=== PATIENT | female | born 1945 | race Caucasian/White ===

== ENCOUNTER 2024-01-28 22:00 | Emergency (ER) | payer MEDICARE, OTHER, SELFPAY ==
[2024-01-28 22:14] VITALS: BP 113/58
[2024-01-28 22:33] LABS: % Basophils 0.4 % (0-2); % Immature Granulocytes 0.4 % (0-0.5); % Lymphocytes 1.4 % (20.5-51.1); % Monocytes 1.7 % (1.7-9.3); % Neutrophils 96.1 % (42.2-75.2); Absolute Basophils 0.1 10^3/uL (0-0.2); Absolute Immature Granulocytes 0.1 10^3/uL (0-0.05); Absolute Lymphocytes 0.2 10^3/uL (1.2-3.4); Absolute Monocytes 0.3 10^3/uL (0.1-0.6); Absolute Neutrophils 16.4 10^3/uL (1.4-6.5); Hematocrit 41.5 % (37.0-47.0); Hemoglobin 14.2 g/dL (12.0-16.0); Mean Corp Hgb Conc. 34.2 g/dL (33.0-37.0); Mean Corpuscular Hgb 29.5 pg (27.0-31.0); Mean Corpuscular Volume 86.1 fL (81.0-99.0); Mean Platelet Volume 10.7 fL (7.4-10.4); Nucleated Red Blood Cells % 0 %; Platelet Count 160 10^3/uL (130-400); Red Blood Cell Count 4.82 10^6/uL (4.20-5.40); Red Cell Dist. Width 13.2 % (11.5-14.5)
[2024-01-28 22:46] LABS: ALT (SGPT) 25 U/L (0-35); AST (SGOT) 27 U/L (14-36); Alkaline Phosphatase 139 U/L (38-126); Blood Urea Nitrogen 19 mg/dl (7-17); Calcium 9.9 mg/dl (8.4-10.2); Carbon Dioxide 24 mmol/L (22-30); Chloride 101 mmol/L (98-107); Glucose 228 mg/dl (70-99); Lipase 72 U/L (23-300); Potassium 4.2 mmol/L (3.5-5.1); Sodium 134 mmol/L (135-145); Total Bilirubin 0.8 mg/dl (0.2-1.3); Total Protein 7.1 g/dl (6.3-8.2); eGFR 58.39
[2024-01-28 22:57] LABS: Troponin I < 0.012 ng/ml
== END 2024-01-29 00:45 ==
LOC: EMR 22:00
PROVIDERS: Emergency Medicine; EMERGENCY PHYSICIAN Student in an Organized Health Care Education/Training Program
DX: R07.89 Other chest pain (principal)
CPT/HCPCS: 80053; 83690; 84484; 85025; 93005

== ENCOUNTER → 2024-01-29 15:59 | Outpatient (REF) | payer MEDICARE, OTHER, SELFPAY ==
[2024-01-29 16:56] LABS: Urine Albumin Negative (Neg - Trace); Urine Bilirubin Negative (Negative); Urine Character Clear (Clear); Urine Color Yellow; Urine Glucose 3+ (Negative); Urine Ketone 1+ (Negative); Urine Leukocyte Trace (Negative); Urine Nitrite Negative (Negative); Urine Occult Blood Negative (Negative); Urine Urobilinogen Negative (Neg - 1+); Urine pH 6.5 (5.0-9.0)
[2024-01-29 17:12] LABS: Urine Squamous Cell 0-2 /LPF (Few)
[2024-01-29 17:13] LABS: Urine Red Blood Cell 0-2 /HPF (0-2); Urine White Cell 0-2 /HPF (0-5)
== END ==
LOC: REG 15:59
PROVIDERS: ATTENDING PHYSICIAN Urology; FAMILY PHYSICIAN Internal Medicine
DX: N39.0 Urinary tract infection, site not specified (principal)
CPT/HCPCS: 81003; 81015; 87086

== ENCOUNTER → 2024-05-16 10:19 | Outpatient (REF) | payer MEDICARE, OTHER, SELFPAY | LOC: RAD 10:19 | PROVIDERS: ATTENDING PHYSICIAN Registered Nurse | DX: M54.32 Sciatica, left side (principal) | CPT/HCPCS: 72110 ==

== ENCOUNTER → 2024-06-25 07:13 | Outpatient (REF) | payer MEDICARE, OTHER, SELFPAY | LOC: DHCBC/DCA 07:13 | PROVIDERS: ATTENDING PHYSICIAN Internal Medicine Cardiovascular Disease; FAMILY PHYSICIAN Internal Medicine | DX: R94.31 Abnormal electrocardiogram [ECG] [EKG] (principal); Z01.810 Encounter for preprocedural cardiovascular examination | CPT/HCPCS: 78452; 93017; A9500; J2785 ==

== ENCOUNTER 2025-03-22 09:53 | Emergency (ER) | payer MEDICARE, OTHER, SELFPAY ==
[2025-03-22 09:56] VITALS: BP 125/93
[2025-03-22 11:12] VITALS: BMI 24.0
[2025-03-22 11:17] VITALS: BP 124/60
--- NOTE | 2025-03-22 11:24 | ED.SKININJ ---
HPI-Injury
<Dana Keys MD, Resident - Last Filed: 03/22/25 14:27>
General
Chief Complaint: Skin Problem
Source: patient
Time Seen by Provider: 03/22/25 11:01
History of Present Illness-Injury
Is this injury a work related problem?: No
Initial Injury comments:
79-year-old female comes to the ED from her primary care due to right lower extremity wound. She was in [facility] with her around 12 days ago and tripped on an escalator and ended up injuring her bilateral lower extremities. She had a large
abrasion on her right lower extremity which was stitched. This past Saturday patient went to her primary care who took out the stitches and started her on Keflex 500 mg 3 times daily for cellulitis. She went back to her primary this morning who
told her that the cellulitis looked worse and that she should go to the ED for further evaluation.
Past History
<Dana Keys MD, Resident - Last Filed: 03/22/25 14:27>
Past History
ED Past Medical History: GERD and NIDDM
ED Past Surgical History: Bowel resection (Diverticulitis), Gynecological (Total hysterectomy for uterine cancer) and Orthopedic (Bilateral knee replacement)
Social History
Tobacco: Non-smoker
Alcohol: None
Drug: None
Personal:
Living: with family
Review of Systems
<Dana Keys MD, Resident - Last Filed: 03/22/25 14:27>
Review of Systems
Allergies reviewed?: Yes
Constitutional: Reports fever
EENT: Reports no symptoms
Respiratory: Reports cough
Cardiac: Reports no symptoms
ABD/GI: Reports no symptoms
: Reports no symptoms
Musculoskeletal: Reports no symptoms
Skin: Reports other (skin excoriation)
Neurological: Reports no symptoms
Endocrine: Reports no symptoms
Hematologic/Lymphatic: Reports no symptoms
Psychiatric: Reports no symptoms
Skin Exam
<Dana Keys MD, Resident - Last Filed: 03/22/25 14:27>
Abrasion
Right Lower Leg:
Description of abrasion: superfical/clean
Left Lower Leg:
Description of abrasion: superfical/clean
Phy Exam
<Dana Keys MD, Resident - Last Filed: 03/22/25 14:27>
General Physical Exam
General Presentation: well appearing and no apparent distress
General Skin: warm and dry
General Mental: alert
General Hydration: appears well hydrated
Cardiovascular Exam
Cardiovascular Exam: regular rate/rhythm, no edema and no murmur
Pulmonary Exam
Pulmonary Exam: lungs clear, no crackles and no wheezing
Cough: non productive cough
Course
<Dana Keys MD, Resident - Last Filed: 03/22/25 14:27>
Orders/Labs/Results
Orders:
Orders
03/22/25 11:15
Complete Blood Count/With Diff Urgent
Comprehensive Metabolic Panel Urgent
Magnesium Urgent
03/22/25 11:41
Doxycycline [Vibramycin] 100 mg PO NOW STA
Abnormal Lab Results
03/22/25
11:15
Absolute Neuts (auto) 7.3 H 10^3/uL
(1.4-6.5)
Absolute Lymphs (auto) 1.0 L 10^3/uL
(1.2-3.4)
Absolute Monos (auto) 0.7 H 10^3/uL
(0.1-0.6)
Neutrophils % 80.4 H %
(42.2-75.2)
Lymphocytes % 10.7 L %
(20.5-51.1)
BUN 18 H mg/dl
(7-17)
Glucose 137 H mg/dl
(70-99)
Alkaline Phosphatase 128 H U/L
(38-126)
03/22/25 11:15
03/22/25 11:15
Vital Signs
Initial and Last Documented VS:
Initial Vital Signs
Temp Pulse Resp BP Pulse Ox
98.6 F 99 18 125/93 97
03/22/25 09:56 03/22/25 09:56 03/22/25 09:56 03/22/25 09:56 03/22/25 09:56
Last Documented Vital Signs
Temp Pulse Resp BP Pulse Ox
98.6 F 105 20 124/60 97
03/22/25 11:17 03/22/25 11:17 03/22/25 11:17 03/22/25 11:17 03/22/25 11:28
<Alejandro Miranda MD - Last Filed: 03/22/25 11:57>
Orders/Labs/Results
Orders:
Orders
03/22/25 11:15
Complete Blood Count/With Diff Urgent
Comprehensive Metabolic Panel Urgent
Magnesium Urgent
03/22/25 11:41
Doxycycline [Vibramycin] 100 mg PO NOW STA
Abnormal Lab Results
03/22/25
11:15
Absolute Neuts (auto) 7.3 H 10^3/uL
(1.4-6.5)
Absolute Lymphs (auto) 1.0 L 10^3/uL
(1.2-3.4)
Absolute Monos (auto) 0.7 H 10^3/uL
(0.1-0.6)
Neutrophils % 80.4 H %
(42.2-75.2)
Lymphocytes % 10.7 L %
(20.5-51.1)
BUN 18 H mg/dl
(7-17)
Glucose 137 H mg/dl
(70-99)
Alkaline Phosphatase 128 H U/L
(38-126)
03/22/25 11:15
03/22/25 11:15
Vital Signs
Initial and Last Documented VS:
Initial Vital Signs
Temp Pulse Resp BP Pulse Ox
98.6 F 99 18 125/93 97
03/22/25 09:56 03/22/25 09:56 03/22/25 09:56 03/22/25 09:56 03/22/25 09:56
Last Documented Vital Signs
Temp Pulse Resp BP Pulse Ox
98.6 F 105 20 124/60 97
03/22/25 11:17 03/22/25 11:17 03/22/25 11:17 03/22/25 11:17 03/22/25 11:28
<Dana Keys MD, Resident - Last Filed: 03/22/25 14:27>
MDM/Problems Addressed
Differential Diagnosis Includes:
Cellulitis
MDM/Problems Addressed:
Plan:
- Patient's wound examined, with wound with some granulation tissues seen
- Cellulitis seems to be improved as per primary care markings
- Will give dose of doxycycline
- Will prescribe doxycycline to take with Keflex for 7 days
- Assured her that she can come back tomorrow after 7 PM and be seen by Dr. Miranda to see if her leg is getting any better
- Upper respiratory symptoms noted but no fever at this time or leukocytosis
<Dana Keys MD, Resident - Last Filed: 03/22/25 14:27>
*Pulse Oximetry
SaO2: 96
Oxygen Mode of Delivery: Room air
Patient hypoxic: no
*Critical Care Note
Total Time (30-74mins, 75-104mins- exclusive of procedures): Not Applicable
ED Attending Note
<Dana Keys MD, Resident - Last Filed: 03/22/25 14:27>
-
Portions of this chart may have been created with voice recognition software.� Occasional wrong word or��sound alike� substitutions may have occurred due to the inherent limitations of voice recognition software.
<Alejandro Miranda MD - Last Filed: 03/22/25 11:57>
ED Attending Note
Patient seen and examined by attending physician: Yes
I performed a history and physical exam of patient and discussed management with resident, I reviewed resident's note and agree with documented findings and plan of care.: Yes
ED Attending Note:
Posttraumatic wound of both legs. Was sutured. Suture removal 3 days ago to the right leg. Started Keflex 2 days ago. Did have a fever yesterday but has has upper respiratory symptoms and cough. No fever today. Patient feels the wound is
improving mildly. Physician was concerned and wanted evaluation in the emergency department.
On exam patient is nontoxic in no distress. She has an open wound to the right lower leg. There is some whiteness to the edge of the wound. Mild dehiscence. Minimal surrounding cellulitis. Erythema has decreased from the markings placed by her
primary MD 2 days ago. She has no calf swelling or cord. She is very nontoxic in appearance. Left leg has very superficial abrasions all scabbed and healing well.
Impression is local cellulitis of the right leg. I do not feel this needs IV antibiotics or admission. Her fever yesterday was likely respiratory in nature. She is in no respiratory distress. Will add doxycycline with close outpatient follow-up.
I did offer to recheck it tomorrow night to see how it was doing.
Discharge Plan
Departure
Patient Disposition: Home (Routine Discharge)
Date of Disposition: 03/22/25
Time of Disposition: 11:49
Patient with high blood pressure during this ER visit?: Yes
Discharge Problem:
Cellulitis of leg without foot, right
Instructions: Cellulitis (Skin Infection), Adult (DC), Skin Abrasions (DC), BLOOD PRESSURE
Prescriptions:
New
doxycycline hyclate 100 mg capsule
100 mg PO BID 7 Days Qty: 13 0RF
No Action
famotidine 40 MG tablet
40 mg PO DAILY
levothyroxine 100 MCG tablet
100 mcg PO DAILY
amitriptyline 25 MG tablet
25 mg PO DAILY
rosuvastatin [Crestor] 40 MG tablet
80 mg PO DAILY
metoprolol tartrate 25 MG tablet
25 mg PO DAILY
losartan-hydrochlorothiazide 1 EACH tablet
1 tab PO DAILY
glimepiride 4 MG tablet
4 mg PO DAILY
dulaglutide [Trulicity] 1.5 MG/0.5 ML pen injector
1.5 mg SQ .WEEKLY
cefdinir 300 mg capsule
300 mg PO BID 7 Days Qty: 14 0RF
Interventions
Interventions:
*Risk Screen - Suicide Last Done: 03/22/25 11:17
*General Assessment Last Done: 03/22/25 11:17
*Neglect/Abuse Screening Last Done: 03/22/25 11:17
*ED- Fall Risk Assessment Last Done: 03/22/25 11:17
*ED COVID-19 Vaccine History Last Done: 03/22/25 11:17
*Nursing Disposition Last Done: 03/22/25 12:31
ED-Musculoskeletal Assessment Last Done: 03/22/25 11:17
ED- Neurological Assessment Last Done: 03/22/25 11:17
ED-Skin Assessment Last Done: 03/22/25 11:17
Discharge Date and Time
Discharge Date/Time: 03/22/25 12:39
Print Language: DIVEHI
[2025-03-22 11:25] LABS: Hematocrit 41.9 % (37.0-47.0); Hemoglobin 14.0 g/dL (12.0-16.0); Mean Corp Hgb Conc. 33.4 g/dL (33.0-37.0); Mean Corpuscular Volume 85.7 fL (81.0-99.0); Nucleated Red Blood Cells % 0 %; Platelet Count 195 10^3/uL (130-400); Red Cell Dist. Width 14.4 % (11.5-14.5)
[2025-03-22 11:38] LABS: ALT (SGPT) 25 U/L (0-35); AST (SGOT) 24 U/L (14-36); Albumin 4.2 g/dl (3.5-5.0); Alkaline Phosphatase 128 U/L (38-126); Blood Urea Nitrogen 18 mg/dl (7-17); Calcium 9.8 mg/dl (8.4-10.2); Carbon Dioxide 26 mmol/L (22-30); Chloride 103 mmol/L (98-107); Estimated Creatinine Clearance 51 ml/min; Glucose 137 mg/dl (70-99); Magnesium 2.0 mg/dl (1.6-2.3); Potassium 4.0 mmol/L (3.5-5.1); Sodium 136 mmol/L (135-145); Total Protein 7.6 g/dl (6.3-8.2); eGFR > 60.00
== END 2025-03-22 12:39 | disposition home or self-care (01) ==
LOC: EMR 09:53
PROVIDERS: EMERGENCY PHYSICIAN Emergency Medicine; FAMILY PHYSICIAN Internal Medicine
DX: L03.115 Cellulitis of right lower limb (principal); E11.9 Type 2 diabetes mellitus without complications; Z87.828 Personal history of other (healed) physical injury and trauma
CPT/HCPCS: 99283; 80053; 83735; 85025